=== PATIENT | female | born 1970 | race Caucasian/White ===

== ENCOUNTER 2016-04-10 23:16 | Emergency (ER) | payer BC ==
[2016-04-10] MEDS ORDERED: NS 0.9% 1000 ML* 2,000 ML IV ONE (23:40)
[2016-04-10] MEDS ORDERED: Morphine INJ* 4 MG/ML 1 ML CARPUJECT IV ONE (23:40)
[2016-04-10] MEDS ORDERED: Ondansetron INJ* 2 MG/ML VIAL IV ONE (23:40)
[2016-04-10] MEDS ORDERED: Ondansetron INJ* 2 MG/ML VIAL ONE (23:40)
[2016-04-10] MEDS ORDERED: Morphine INJ* 4 MG/ML 1 ML CARPUJECT ONE (23:40)
[2016-04-11 00:28] LABS: Hematocrit 46 % (35-47); Hemoglobin 15.5 g/dl (12.0-16.0); Mean Corpuscular HGB Conc 34 g/dl (31-36); Mean Corpuscular Hemoglobin 29 pg (27-31); Mean Corpuscular Volume 87 fL (80-97); Mean Platelet Volume 10 um3 (7.4-10.4); Red Blood Count 5.28 10^6/ul (4.0-5.4); Red Cell Distribution Width 13 % (10.5-15); White Blood Count 13.2 10^3/ul (3.5-10.8)
[2016-04-11] MEDS ORDERED: Morphine INJ* 2 MG/ML 1 ML CARPUJECT IV ONE (00:31)
[2016-04-11] MEDS: Morphine INJ* 2 MG/ML 1 ML CARPUJECT IM ONE ×2 (00:33→03:00)
[2016-04-11 00:38] LABS: ALT 19 U/L (7-52); AST 14 U/L (13-39); Albumin 4.5 g/dL (3.2-5.2); Alkaline Phosphatase 73 U/L (34-104); Anion Gap 10 mmol/L (2-11); BUN/Creatinine Ratio 18.2 (8-20); Blood Urea Nitrogen 18 mg/dL (6-24); CO2 Carbon Dioxide 20 mmol/L (22-32); Calcium 9.1 mg/dL (8.6-10.3); Chloride 106 mmol/L (101-111); EGFR African American 78.7 (>60); EGFR Non-African American 61.2 (>60); Glucose 159 mg/dL (70-100); Lipase 15 U/L (11.0-82.0); Potassium 3.7 mmol/L (3.5-5.0); Sodium 136 mmol/L (133-145); Total Protein 7.5 g/dL (6.4-8.9)
[2016-04-11 00:57] LABS: Magnesium 1.8 mg/dL (1.9-2.7)
[2016-04-11] MEDS ORDERED: Ondansetron INJ* 2 MG/ML VIAL IV ONE (01:11)
[2016-04-11] MEDS ORDERED: Iohexol 300* (CONTRAST) 10 ML SDV IV ONE (01:27)
[2016-04-11] MEDS ORDERED: Magnesium Sulfate 1 GM IV* 1 GM/100 ML BAG IV ONE (03:37)
--- NOTE | 2016-04-11 04:26 | ED ---
Casper Hopkins Adam, scribed for David Ragland on 04/10/16 at 2342 . GI/ HPI - HPI Summary HPI Summary: Pt is a 45 year old female presenting with abdominal pain and N/V/D. She began having symptoms at 10:00 this morning. She states that she has vomited 6x and had yellow diarrhea 10x. Her abdominal pain is located diffusely around the umbilicus. Pt states that her children and her have all had the same symptoms recently. She denies any fever. No surgical Hx. PMHx of pericarditis. Positive tobacco use. - History of Current Complaint Chief Complaint: EDAbdPain Time Seen by Provider: 04/10/16 23:32 Stated Complaint: CHEST PAIN, N,V & D Hx Obtained From: Patient Onset/Duration: Started Hours Ago, Atraumatic, Still Present Timing: Constant Severity: Moderate Current Severity: Moderate Pain Intensity: 6 Location of Pain: Diffuse, Umbilical Associated Signs and Symptoms: Positive: Nausea, Vomiting, Diarrhea Aggravating Factor(s): Nothing Alleviating Factor(s): Nothing - Allergy/Home Medications Allergies/Adverse Reactions: Allergies Allergy/AdvReac Type Severity Reaction Status Date / Time BEE STINGS Allergy SEVERE Uncoded 01/27/16 08:27 LOCALIZED SWELLING PMH/Surg Hx/FS Hx/Imm Hx Endocrine/Hematology History: Reports: Hx Diabetes - REPORTS GESTATIONAL DIABETES-RESOLVED SINCE DELIVERY Cardiovascular History: Denies: Hx Congestive Heart Failure, Hx Hypertension, Hx Pacemaker/ICD History: Denies: Hx Renal Disease Sensory History: Denies: Hx Contacts or Glasses, Hx Hearing Aid Opthamlomology History: Denies: Hx Contacts or Glasses Psychiatric History: Denies: Hx Panic Disorder - Cancer History Hx Chemotherapy: No Hx Radiation Therapy: No Infectious Disease History: No Infectious Disease History: Reports: Hx Hepatitis - HEP C EXPOSURE - CARRIES ANTIGEN Denies: Traveled Outside the [place] in Last 30 Days - Family History Known Family History: Positive: Other - Negative FMHx of breast cancer - Social History Occupation: Employed Full-time Lives: With Family Alcohol Use: Weekly Alcohol Amount: 2 GLASSES OF WINE PER WEEK Hx Substance Use: No Substance Use Type: Reports: None Hx Tobacco Use: Yes Smoking Status (MU): Light Every Day Tobacco Smoker Type: Cigarettes Amount Used/How Often: 7 CIGARETTES PER DAY FOR ABOUT 16 YEARS Length of Time of Smoking/Using Tobacco: 16 YEARS Have You Smoked in the Last Year: Yes Review of Systems Constitutional: Negative Negative: Fever Positive: Abdominal Pain, Vomiting, Diarrhea, Nausea All Other Systems Reviewed And Are Negative: Yes Physical Exam Triage Information Reviewed: Yes Vital Signs On Initial Exam: Initial Vitals Temp Pulse Resp BP Pulse Ox 98.8 F 110 18 99/60 97 04/10/16 23:21 04/10/16 23:21 04/10/16 23:21 04/10/16 23:21 04/10/16 23:21 Vital Signs Reviewed: Yes Appearance: Positive: Well-Appearing, No Pain Distress Skin: Positive: Warm, Skin Color Reflects Adequate Perfusion, Dry Head/Face: Positive: Normal Head/Face Inspection Eyes: Positive: EOMI, GUS ENT: Positive: Other - Mucosa dry Neck: Positive: Supple, Nontender Respiratory/Lung Sounds: Positive: Clear to Auscultation, Breath Sounds Present Cardiovascular: Positive: Pulses are Symmetrical in both Upper and Lower Extremities, Tachycardia Abdomen Description: Positive: Other: - Diffuse tenderness Bowel Sounds: Positive: Present Musculoskeletal: Positive: Normal, Strength/ROM Intact Neurological: Positive: Normal, Sensory/Motor Intact, Alert, Oriented to Person Place, Time Diagnostics - Vital Signs Vital Signs Temp Pulse Resp BP Pulse Ox 04/10/16 23:21 98.8 F 110 18 99/60 97 - Laboratory Result Diagrams: 04/10/16 23:30 04/10/16 23:30 Lab Statement: Any lab studies that have been ordered have been reviewed, and results considered in the medical decision making process. - CT A/P CT Interpretation Completed By: Radiologist - NO BOWEL OBSTRUCTION, COLITIS, DIVERTICULITIS, FREE FLUID OR FREE AIR. NORMAL APPENDIX. UNREMARKABLE PANCREAS AND GALLBLADDER. MINIMAL SPLENOMEGALY. SMALL UMBILICAL HERNIA CONTAINING FAT. SMALL RIGHT RENAL CYSTS. 2.1 CM RIGHT OVARIAN FOLLICLE. - EKG 23:26 Cardiac Rate: Tachycardia - 107 BPM EKG Rhythm: Sinus Tachycardia EKG Interpretation: No acute changes - Additional Comments Diagnostic Additional Comments: Troponin I - 0.00 GIGU Course/Dx - Diagnoses Provider Diagnoses: Gastroenteritis Discharge - Discharge Plan Condition: Stable Disposition: HOME Patient Education Materials: Gastroenteritis (ED) Referrals: Jessica Agarwal MD [Primary Care Provider] - Additional Instructions: Follow up with Dr. Agarwal. The documentation as recorded by the Casper archibaldWilber accurately reflects the service I personally performed and the decisions made by me, David Ragland.
[2016-04-11 04:55] VITALS: BP 76/43
--- NOTE | 2016-04-11 08:13 | RAD ---
INDICATION: Abdominal pain and vomiting evaluate for diverticulitis. COMPARISON: Comparison is made with a prior CT of the abdomen and pelvis from June 09, 2013. TECHNIQUE: A CT scan of the abdomen and pelvis was performed with intravenous and without oral contrast following intravenous injection of 124 ml of Omnipaque 300 nonionic contrast. Contiguous axial sections were obtained from the lung bases through the symphysis pubis. Images were reconstructed in the coronal and sagittal planes. FINDINGS: The lung bases are clear. No pleural effusion is present. The liver is normal in size and decreased in attenuation consistent with fatty infiltration. The spleen is mildly enlarged and unchanged from the prior exam. No calcified gallstones are seen. The pancreas appears to be within normal limits. The kidneys and adrenal glands are normal in size. No hydronephrosis is seen. There are cysts in the superior and inferior pole of the right kidney measuring 1.7 and 0.7 cm in size respectively. The aorta is normal in caliber and demonstrates homogeneous contrast opacification. No significant enlarged retroperitoneal lymph nodes are seen. The stomach is mildly distended with fluid. The small bowel colon appear nondistended. The appendix is within normal limits. There is mild descending and sigmoid diverticulosis without evidence for diverticulitis. There is a small periumbilical hernia containing fat. The uterus is retroverted and normal in size. There is a 1.8 cm involuting right ovarian cyst. No free intraperitoneal air or fluid is seen. No significant focal osseous abnormality is seen. IMPRESSION: 1. NO EVIDENCE FOR ACUTE FINDING. 2. 1.8 CM INVOLUTING RIGHT OVARIAN CYST. 3. HEPATIC STEATOSIS. 4. MILD SPLENOMEGALY, UNCHANGED.
== END 2016-04-11 04:57 | disposition home or self-care (01) ==
LOC: ED 23:16
DX: K52.9 Noninfective gastroenteritis and colitis, unspecified (principal); R11.2 Nausea with vomiting, unspecified; R19.7 Diarrhea, unspecified; R10.9 Unspecified abdominal pain; F17.210 Nicotine dependence, cigarettes, uncomplicated
CPT/HCPCS: 36415; 74177; 80053; 83690; 83735; 84484; 84702; 85025; 93005; 96374; 96375; 96376; 99283; J2270; J2405; J3475; Q9967

== ENCOUNTER 2017-03-29 13:52 | Emergency (ER) | payer BC ==
[2017-03-29] MEDS ORDERED: Morphine INJ* 4 MG/ML 1 ML CARPUJECT IV ONE (14:57)
[2017-03-29] MEDS ORDERED: Ondansetron INJ* 2 MG/ML VIAL IV ONE (14:57)
[2017-03-29] MEDS ORDERED: NS 0.9% 1000 ML* 2,000 ML IV ONE (14:57)
[2017-03-29 15:14] LABS: Hematocrit 35 % (35-47); Hemoglobin 12.2 g/dl (12.0-16.0); Mean Corpuscular HGB Conc 35 g/dl (31-36); Mean Corpuscular Hemoglobin 30 pg (27-31); Mean Corpuscular Volume 88 fL (80-97); Mean Platelet Volume 9 um3 (7.4-10.4); Platelet Count 105 10^3/ul (150-450); Red Blood Count 4.04 10^6/ul (4.0-5.4); Red Cell Distribution Width 13 % (10.5-15); White Blood Count 6.3 10^3/ul (3.5-10.8)
[2017-03-29 15:28] LABS: INR 0.95 (0.77-1.02)
[2017-03-29 15:31] LABS: EGFR Non-African American 86.6 (>60)
--- NOTE | 2017-03-29 15:32 | RAD ---
Indication: RIGHT occipital headache. Comparison: No relevant prior exams available on the [facility] for comparison. Technique: Noncontrast CT vertex of skull through foramen magnum. Report: The sulci, ventricles, and basal cisterns are normal for age. [place] matter white matter differentiation is preserved without evidence for edema. No intra or extra axial hemorrhage, mass, or fluid collection detected. Unremarkable visualized orbital contents. Unremarkable calvarium and skull base. Unremarkable scalp. The visualized paranasal sinuses and mastoid air spaces are clear. IMPRESSION: Negative unenhanced CT of the brain.
[2017-03-29] MEDS ORDERED: diPHENhydraMINE IV* 50 MG/ML 1 ml VIAL (BENADRYL) IV ONE ×2 (15:36→15:38)
--- NOTE | 2017-03-29 15:36 | RAD ---
Indication: Occipital headaches. CT of the cervical spine was obtained in the axial plane. Sagittal and coronal reconstructed images were obtained. The skull base demonstrates no fracture. Mastoid air cells are well aerated. The C1 ring is intact. Atlantoaxial joint is unremarkable. The remainder of the vertebral bodies appear normal in height and alignment. There is no evidence of fracture. Disc spaces all well-preserved. Spinal canal appears to be intact. IMPRESSION: No fracture of the cervical spine is noted.
[2017-03-29 15:55] LABS: Monocytes % 8 % (0-13)
[2017-03-29] MEDS ORDERED: Iohexol 350* (CONTRAST) 500 ML MDV IV ONE (17:44)
--- NOTE | 2017-03-29 19:17 | RAD ---
INDICATION: Occipital headaches COMPARISON: CT brain same date TECHNIQUE: Axial source images were acquired with coronal and sagittal reconstructions. CT angiographic technique was utilized with injection of 80 mL Omnipaque 350. FINDINGS: Aortic arch: There are no CT angiogram abnormalities of the arch or the great vessels arising from the arch. Right carotid: The common carotid artery, carotid bifurcation, extracranial portions of the internal carotid artery, carotid artery at the skull base, carotid siphon, and carotid termination appear normal. Left carotid:The common carotid artery, carotid bifurcation, extracranial portions of the internal carotid artery, carotid artery at the skull base, carotid siphon, and carotid termination appear normal. Right middle and anterior cerebral arteries: There are no CT angiographic abnormalities of the middle or anterior cerebral arteries. Left middle and anterior cerebral arteries: There are no CT angiographic abnormalities of the middle or anterior cerebral arteries Right vertebral: The CT angiographic appearance of the vertebral artery is normal. Left vertebral: The CT angiographic appearance of the vertebral artery is normal. Basilar artery: The basilar artery and basilar tip appear normal. Posterior cerebral arteries: The distal distribution of the right and left posterior cerebral arteries is normal. [place]: The CT angiographic appearance of the [place] is normal. Source images show no evidence of new mass or adenopathy within the neck. There is a small (4 to 5 mm) cyst in left thyroid lobe, unchanged. There are no focal brain parenchymal abnormalities or abnormal areas of enhancement. IMPRESSION: NO SPECIFIC CT ANGIOGRAPHIC ABNORMALITIES. CPT II Codes: 3100F RS
[2017-03-29] MEDS ORDERED: Ketorolac INJ* 30 MG/ML 1 ML VIAL IV ONE (19:43)
--- NOTE | 2017-03-29 19:53 | ED ---
Sriram Hopkins Stephanie, scribed for Rodrigue Rosas MD on 03/29/17 at 1508 . Throat Pain/Nasal Congestion - HPI Summary HPI Summary: The pt is a 46 y/o F presenting to the ED with c/o vision changes that began at 01:30 today. The pt reports an ongoing headache that began 2 weeks ago and has worsened from a 4 to 7 in severity since coming into the ED today. Symptoms include neck pain, headache (in the R parietal region and bilateral occipital region of the head), and electrical shocks up and down the body. The pt denies weakness, numbness in the extremities, rhinorrhea, and sore throat. She denies hx of headaches or recent trauma. The pt describes her vision changes as triangle shapes appearing over the left side of both of her eyes. The pt said her vision changed to appear as if she was under water. There was a black dot present in the middle of her vision and she was unable to see. The incident of vision changes lasted 40 minutes. The pt reports having a long period that was unexpected because she gets hot flashes and believes she was undergoing menopause. - History of Current Complaint Chief Complaint: EDHeadache Time Seen by Provider: 03/29/17 14:34 Hx Obtained From: Patient Onset/Duration: Sudden Onset, Lasting Minutes - 40, Resolved - Allergies/Home Medications Allergies/Adverse Reactions: Allergies Allergy/AdvReac Type Severity Reaction Status Date / Time Morphine Allergy Hives Verified 03/29/17 17:44 BEE STINGS Allergy SEVERE Uncoded 03/29/17 14:16 LOCALIZED SWELLING PMH/Surg Hx/FS Hx/Imm Hx Endocrine/Hematology History: Reports: Hx Diabetes - REPORTS GESTATIONAL DIABETES-RESOLVED SINCE DELIVERY Cardiovascular History: Denies: Hx Congestive Heart Failure, Hx Hypertension, Hx Pacemaker/ICD History: Denies: Hx Renal Disease Sensory History: Denies: Hx Contacts or Glasses, Hx Hearing Aid Opthamlomology History: Denies: Hx Contacts or Glasses Psychiatric History: Denies: Hx Panic Disorder - Cancer History Hx Chemotherapy: No Hx Radiation Therapy: No - Surgical History Surgery Procedure, Year, and Place: None Infectious Disease History: No Infectious Disease History: Reports: Hx Hepatitis - HEP C EXPOSURE - CARRIES ANTIGEN Denies: Traveled Outside the [place] in Last 30 Days - Family History Known Family History: Positive: Other - Negative FMHx of breast cancer - Social History Occupation: Employed Full-time Lives: With Family Alcohol Use: Weekly Alcohol Amount: 2 GLASSES OF WINE PER WEEK Hx Substance Use: No Substance Use Type: Reports: None Hx Tobacco Use: Yes Smoking Status (MU): Light Every Day Tobacco Smoker Type: Cigarettes Amount Used/How Often: 7 CIGARETTES PER DAY FOR ABOUT 16 YEARS Length of Time of Smoking/Using Tobacco: 16 YEARS Have You Smoked in the Last Year: Yes Review of Systems Negative: Fever Negative: Sore Throat, Nasal Discharge Positive: Other - neck pain, Neurological: Other - "elecrical shock" pain up and down body though lower extremities Positive: Headache. Negative: Weakness, Numbness All Other Systems Reviewed And Are Negative: Yes Physical Exam - Summary Physical Exam Summary: General: well-appearing, moderate pain distress Skin: warm, color reflects adequate perfusion, dry Head: normal Eyes: EOMI, GUS ENT: normal Neck: supple, nontender Respiratory: CTA, breath sounds present Cardiovascular: RRR Abdomen: soft, nontender Bowel: present Musculoskeletal: normal, strength/ROM intact Neurological: normal, sensory/motor intact, A&O x3 Psychological: affect/mood appropriate Triage Information Reviewed: Yes Vital Signs On Initial Exam: Initial Vitals Temp Pulse Resp BP Pulse Ox 97.7 F 88 20 116/80 97 03/29/17 14:16 03/29/17 14:16 03/29/17 14:16 03/29/17 14:16 03/29/17 14:16 Vital Signs Reviewed: Yes - Lazaro Coma Scale Coma Scale Total: 15 Diagnostics - Vital Signs Vital Signs Temp Pulse Resp BP Pulse Ox 03/29/17 14:32 91 97 03/29/17 14:16 97.7 F 88 20 116/80 97 - Laboratory Lab Results: Lab Results 03/29/17 03/29/17 03/29/17 Range/Units 15:06 15:06 15:06 WBC 6.3 (3.5-10.8) 10^3/ul RBC 4.04 (4.0-5.4) 10^6/ul Hgb 12.2 (12.0-16.0) g/dl Hct 35 (35-47) % MCV 88 (80-97) fL MCH 30 (27-31) pg MCHC 35 (31-36) g/dl RDW 13 (10.5-15) % Plt Count 105 L (150-450) 10^3/ul MPV 9 (7.4-10.4) um3 Neut % (Auto) Not Reportable Lymph % (Auto) Not Reportable [place] % (Auto) Not Reportable Eos % (Auto) Not Reportable Baso % (Auto) Not Reportable Absolute Neuts (auto) Not Reportable Absolute Lymphs (auto) Not Reportable Absolute Monos (auto) Not Reportable Absolute Eos (auto) Not Reportable Absolute Basos (auto) Not Reportable Absolute Nucleated RBC Not Reportable Neutrophils % 27 L (38-83) % Lymphocytes % 51 H (25-47) % Reactive Lymphs % 14 H (0-6) % Monocytes % 8 (0-13) % Eosinophils % 0 (0-6) % Basophils % 0 (0-2) % Nucleated RBC % Not Reportable Abs Neuts (Manual) 1.7 (1.5-7.7) 10^3/ul Abs Lymphs (Manual) 3.2 (1.0-4.8) 10^3/ul Abs Monocytes (Manual) 0.5 (0-0.8) 10^3/ul Absolute Eos (Manual) 0 (0-0.6) 10^3/ul Abs Basophils (Manual) 0 (0-0.2) 10^3/ul Normal RBC Morphology Normal (Normal) ESR (0-14) mm/Hr INR (Anticoag Therapy) 0.95 (0.77-1.02) APTT 29.5 (26.0-36.3) seconds Sodium 137 (133-145) mmol/L Potassium 3.4 L (3.5-5.0) mmol/L Chloride 105 (101-111) mmol/L Carbon Dioxide 25 (22-32) mmol/L Anion Gap 7 (2-11) mmol/L BUN 11 (6-24) mg/dL Creatinine 0.73 (0.51-0.95) mg/dL Est GFR ( Amer) 111.4 (>60) Est GFR (Non-Af Amer) 86.6 (>60) BUN/Creatinine Ratio 15.1 (8-20) Glucose 139 H (70-100) mg/dL Lactic Acid (0.5-2.0) mmol/L Calcium 8.7 (8.6-10.3) mg/dL Total Bilirubin 0.70 (0.2-1.0) mg/dL AST 55 H (13-39) U/L ALT 140 H (7-52) U/L Alkaline Phosphatase 89 (34-104) U/L C-Reactive Protein 4.82 (< 5.00) mg/L Total Protein 6.4 (6.4-8.9) g/dL Albumin 3.8 (3.2-5.2) g/dL Globulin 2.6 (2-4) g/dL Albumin/Globulin Ratio 1.5 (1-3) Beta HCG, Quant < 0.60 mIU/mL Monoscreen (Negative) 03/29/17 03/29/17 Range/Units 15:06 17:55 WBC (3.5-10.8) 10^3/ul RBC (4.0-5.4) 10^6/ul Hgb (12.0-16.0) g/dl Hct (35-47) % MCV (80-97) fL MCH (27-31) pg MCHC (31-36) g/dl RDW (10.5-15) % Plt Count (150-450) 10^3/ul MPV (7.4-10.4) um3 Neut % (Auto) Lymph % (Auto) [place] % (Auto) Eos % (Auto) Baso % (Auto) Absolute Neuts (auto) Absolute Lymphs (auto) Absolute Monos (auto) Absolute Eos (auto) Absolute Basos (auto) Absolute Nucleated RBC Neutrophils % (38-83) % Lymphocytes % (25-47) % Reactive Lymphs % (0-6) % Monocytes % (0-13) % Eosinophils % (0-6) % Basophils % (0-2) % Nucleated RBC % Abs Neuts (Manual) (1.5-7.7) 10^3/ul Abs Lymphs (Manual) (1.0-4.8) 10^3/ul Abs Monocytes (Manual) (0-0.8) 10^3/ul Absolute Eos (Manual) (0-0.6) 10^3/ul Abs Basophils (Manual) (0-0.2) 10^3/ul Normal RBC Morphology (Normal) ESR 10 (0-14) mm/Hr INR (Anticoag Therapy) (0.77-1.02) APTT (26.0-36.3) seconds Sodium (133-145) mmol/L Potassium (3.5-5.0) mmol/L Chloride (101-111) mmol/L Carbon Dioxide (22-32) mmol/L Anion Gap (2-11) mmol/L BUN (6-24) mg/dL Creatinine (0.51-0.95) mg/dL Est GFR ( Amer) (>60) Est GFR (Non-Af Amer) (>60) BUN/Creatinine Ratio (8-20) Glucose (70-100) mg/dL Lactic Acid 0.6 (0.5-2.0) mmol/L Calcium (8.6-10.3) mg/dL Total Bilirubin (0.2-1.0) mg/dL AST (13-39) U/L ALT (7-52) U/L Alkaline Phosphatase (34-104) U/L C-Reactive Protein (< 5.00) mg/L Total Protein (6.4-8.9) g/dL Albumin (3.2-5.2) g/dL Globulin (2-4) g/dL Albumin/Globulin Ratio (1-3) Beta HCG, Quant mIU/mL Monoscreen Negative (Negative) Result Diagrams: 03/29/17 15:06 03/29/17 15:06 Lab Statement: Any lab studies that have been ordered have been reviewed, and results considered in the medical decision making process. - CT Cervical Spine CT Interpretation: No Acute Changes CT Interpretation Completed By: Radiologist - No fracture of the cervical spine is noted. Brain CT Interpretation: No Acute Changes CT Interpretation Completed By: Radiologist - Negative unenhanced CT of the brain. CTA head CT Interpretation: No Acute Changes CT Interpretation Completed By: Radiologist - NO SPECIFIC CT ANGIOGRAPHIC ABNORMALITIES. CPT II Codes: 3100F PQRS EENT Course/Dx - Course Course Of Treatment: Medications reviewed. CONNELL 09/25 DURING INITIAL INTERVIEW. DECREASED TO 04/[address] HASSAN, NEUROLOGY, SAW PATIENT IN ED. POSSIBLE VIRAL CAUSE OF 2 WEEK HEADACHE; NO SPINAL TAP NO FEVER OR NUCAL RIGIDITY. TODAY'S EXACERBATION CONSIDERED TO BE MIGRAINE WITH AURA. F/U PMD; RETURN IF WORSE. - Diagnoses Provider Diagnoses: Headache, Migraine with aura - Provider Notifications Discussed Care Of Patient With: Navjot Hassan - Dr. Hassan suggested to order a CTA head/neck. Dr. Hassan will evaluate pt. Time Discussed With Above Provider: 16:54 Discharge - Discharge Plan Condition: Stable Disposition: HOME Patient Education Materials: Migraine Headache (ED), General Headache (ED) Referrals: Jessica Agarwal MD [Primary Care Provider] - Additional Instructions: FOLLOW UP WITH YOUR DOCTOR. RETURN TO THE EMERGENCY DEPARTMENT FOR ANY WORSENING OF YOUR CONDITION; WEAKNESS , NUMBNESS, YOU FEEL ILL, FEVER, DIFFICULTY WITH SPEECH OR VISION OR QUESTIONS OR CONCERNS. The documentation as recorded by the Sriram archibald Stephanie accurately reflects the service I personally performed and the decisions made by me, Rodrigue Rosas MD.
[2017-03-29 20:01] VITALS: BP 94/53
--- NOTE | 2017-03-29 21:26 | CONS ---
NEUROLOGY CONSULTATION: DATE OF CONSULT: 03/29/17 LOCATION: She is in the emergency room. REFERRING PHYSICIAN: Dr. Rosas. CHIEF COMPLAINT: Headache, visual changes. 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 They fluctuate in intensity and are most commonly occipital or apical, but sometimes more in the left side than the right. About 5 days ago, she was having pain behind her eyes and it would hurt to move her eyes in any direction. She normally does not get headaches. She would take some ibuprofen, but it did not really seem to help and she was not really taking anything else for them. She did not feel sick in any other way, specifically, no sore throats, fevers, rashes, joint pains, or gastrointestinal problems. 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 Today, she was at [facility] and she started to have a change in her vision. She noted in the left peripheral vision, she started to get an arc-shaped scotoma, which moved across towards her center vision. There was red and green geometric components to it and was shimmering. It moved to the center and then resolved to where she had difficulty seeing in the center of her vision, but can see in the periphery. That resolved as well and the whole thing lasted about 40 minutes. Ten minutes after that, she started to get a pounding headache. She has some mild photophobia, but nothing pronounced. No nausea. She has not had problems with migraine headaches in the past or other headache disorders and has never had visual events like this before. PAST MEDICAL HISTORY: Notable for generally good health. MEDICATIONS: She does not take any medications on a regular basis. ALLERGIES: She is allergy to BEE STINGS. She just had the reaction of hives to some MORPHINE that she got in the emergency room. SOCIAL HISTORY: She drinks alcohol infrequently. She is and lives with her . She works at nights in the intensive care unit. PHYSICAL EXAM: She is well nourished and well hydrated. Temperature 97.7, heart rate in the 80s, blood pressure 108/71. Lungs are clear bilaterally. Heart is in a regular rhythm without murmurs heard. There are no anterior or posterior cervical bruits. Oral mucosa is moist and I do not see any erythema. Neck is supple, but there is some discomfort when she flexes her neck at the nuchal region. Neurologically, pupils react equally from 4 to 2.5 mm. Funduscopic exam reveals sharp discs bilaterally. Eye movements are normal and visual win are full to confrontation. There is no ptosis. Facial musculature is symmetric. Facial sensation to light touch is symmetric. Speech is clear without dysarthria. Motor exam reveals no drift in the limbs. She seems to have perfectly normal strength throughout. There is no tremor or asterixis in the outstretched hand. She is alert and oriented and is an excellent historian. Memory is intact and language is fluent. She has adequate attention, concentration, and fund of knowledge. DIAGNOSTIC STUDIES/LAB DATA: Includes a CT scan of the cervical spine interpreted as unremarkable. CT scan of the brain was also obtained and likewise is unremarkable. I reviewed the images and I agree. Other laboratory study is notable for a platelet count of 105,000, which when compared to prior platelet count is little bit lower than usual, but she has had platelets counts at 126,000 and 141,000 in the past. Her white blood cell count is normal, but she has 27% neutrophils, 51% lymphocytes, and 14% reactive lymphocytes. Chemistries are notable for nonfasting glucose of 139; elevated AST at 55 and ALT at 140, which she has not had with prior blood draws. Bilirubin is normal. Beta hCG is negative. IMPRESSION AND PLAN: My suspicion is that Dorota has a viral headache. She has elevated liver enzymes and reactive lymphocytosis. She does not have any other symptoms of a viral infection, but there are a lot of things going around and I suspect that is the case. I do not think that she needs a lumbar puncture. I would recommend checking a Monospot and a sedimentation rate. She is to have a CT angiogram of the neck to rule out a dissection. She is feeling better after medication, but still has a headache and I recommend consider some Toradol once the angiogram is done and if it is normal. If the headaches worsen or specifically she develop signs or symptoms of infectious illness, then the lumbar puncture might be indicated, but at this point, I do not think it is necessary as she has been sick for 2 weeks and does not have a fever or elevated white count but just some stigmata that suggest a viral process. [id number]/[facility] #: [id number] ROLDAN
== END 2017-03-29 20:02 | disposition home or self-care (01) ==
LOC: ED 13:52
DX: G43.109 Migraine with aura, not intractable, without status migrainosus (principal); M54.2 Cervicalgia; F17.210 Nicotine dependence, cigarettes, uncomplicated; E11.9 Type 2 diabetes mellitus without complications; H53.9 Unspecified visual disturbance
CPT/HCPCS: 36415; 70450; 70496; 70498; 72125; 80053; 83605; 84702; 85025; 85610; 85652; 85730; 86140; 86308; 86664; 86665; 96374; 96375; 99282; J1200; J1885; J2270; J2405; Q9967

== ENCOUNTER 2017-10-14 23:56 | Emergency (ER) | payer BC ==
[2017-10-15] MEDS ORDERED: Albuterol 2.5 MG/3 ML NEB.SOL* (0.083%) INH ONE ×3 (00:18→02:00)
[2017-10-15] MEDS ORDERED: methylPREDNISolone 125 MG* 2 ML VIAL IV ONE (00:18)
[2017-10-15 00:36] LABS: ABS Basophils 0 10^3/ul (0-0.2); ABS Eosinophils 0.1 10^3/ul (0-0.6); ABS Lymphocytes 2.8 10^3/ul (1.0-4.8); ABS Monocytes 0.4 10^3/ul (0-0.8); ABS Neutrophils 3.1 10^3/ul (1.5-7.7); ABS Nucleated RBC 0 10^3/ul; Eosinophil % 1.5 % (0-6); Hematocrit 37 % (35-47); Hemoglobin 12.9 g/dl (12.0-16.0); Lymphocyte % 43.6 % (25-47); Mean Corpuscular HGB Conc 35 g/dl (31-36); Mean Corpuscular Hemoglobin 31 pg (27-31); Mean Corpuscular Volume 88 fL (80-97); Mean Platelet Volume 9.2 um3 (7.4-10.4); Nucleated Red Blood Cells % 0.1; Platelet Count 184 10^3/ul (150-450); Red Blood Count 4.21 10^6/ul (4.00-5.40); Red Cell Distribution Width 13 % (10.5-15); White Blood Count 6.5 10^3/ul (3.5-10.8)
[2017-10-15 01:02] LABS: INR 0.92 (0.77-1.02)
[2017-10-15 01:06] LABS: EGFR Non-African American 77.9 (>60)
[2017-10-15] MEDS ORDERED: Potassium Chlor TAB* 20 MEQ TAB.ER PO ONE (01:54)
[2017-10-15] MEDS ORDERED: Azithromycin TAB* 250 MG PO ONE (01:55)
[2017-10-15] MEDS ORDERED: Albuterol HFA INHALER* 8 gm MDI INH ONE (02:09)
--- NOTE | 2017-10-15 02:13 | ED ---
Shortness of Breath - HPI Summary HPI Summary: This is cristela Mckeon documenting for Dr. David Ragland MD. Pt is a 46 y/o F who presents to ED c/o SOB for one week. She describes the pain as burning when she breathes and heaviness. Walking exacerbates pain. Notes nonproductive cough. Denies edema in legs or fever. FHx of myocardial infarction. Denies drug use or PMHx of ID or emphysema. - History of Current Complaint Chief Complaint: EDShortnessOfBreath Time Seen by Provider: 10/15/17 00:10 Hx Obtained From: Patient Onset/Duration: Lasting Days, Still Present Aggrevating Factors: Movement Associated Signs & Symptoms: Cough (Nonproductive), Fever - negative, Edema - negative - Allergy/Home Medications Allergies/Adverse Reactions: Allergies Allergy/AdvReac Type Severity Reaction Status Date / Time BEE STINGS Allergy SEVERE Uncoded 10/15/17 00:00 LOCALIZED SWELLING PMH/Surg Hx/FS Hx/Imm Hx Endocrine/Hematology History: Reports: Hx Diabetes - REPORTS GESTATIONAL DIABETES-RESOLVED SINCE DELIVERY Cardiovascular History: Denies: Hx Congestive Heart Failure, Hx Hypertension, Hx Pacemaker/ICD Respiratory History: Denies: Hx Asthma, Hx Chronic Obstructive Pulmonary Disease (COPD) History: Denies: Hx Renal Disease Sensory History: Denies: Hx Contacts or Glasses, Hx Hearing Aid Opthamlomology History: Denies: Hx Contacts or Glasses Psychiatric History: Denies: Hx Panic Disorder - Cancer History Hx Chemotherapy: No Hx Radiation Therapy: No - Surgical History Surgery Procedure, Year, and Place: None Infectious Disease History: No Infectious Disease History: Reports: Hx Hepatitis - HEP C EXPOSURE - CARRIES ANTIGEN Denies: Traveled Outside the [place] in Last 30 Days - Family History Known Family History: Positive: Other - Negative FMHx of breast cancer - Social History Alcohol Use: Weekly Alcohol Amount: 2 GLASSES OF WINE PER WEEK Hx Substance Use: No Substance Use Type: Reports: None Hx Tobacco Use: Yes Smoking Status (MU): Light Every Day Tobacco Smoker Type: Cigarettes Amount Used/How Often: 7 CIGARETTES PER DAY FOR ABOUT 16 YEARS Length of Time of Smoking/Using Tobacco: 16 YEARS Have You Smoked in the Last Year: Yes Review of Systems Negative: Fever Positive: Other - Negative: Edema in legs Positive: Shortness Of Breath, Cough - Nonproductive All Other Systems Reviewed And Are Negative: Yes Physical Exam - Summary Physical Exam Summary: Appearance: Well appearing, mild distress Skin: warm, dry, reflects adequate perfusion Head/face: normal Eyes: EOMI, GUS ENT: normal Neck: supple, non-tender Respiratory: CTA, breath sounds present Cardiovascular: RRR, pulses symmetrical Abdomen: non-tender, soft Bowel: present Musculoskeletal: normal, strength/ROM intact Neuro: normal, sensory motor intact, A&Ox3 Triage Information Reviewed: Yes Vital Signs On Initial Exam: Initial Vitals Temp Pulse Resp BP Pulse Ox 97.7 F 71 24 114/72 100 10/14/17 23:58 10/14/17 23:58 10/14/17 23:58 10/14/17 23:58 10/14/17 23:58 Vital Signs Reviewed: Yes Diagnostics - Vital Signs Vital Signs Temp Pulse Resp BP Pulse Ox 10/15/17 02:05 70 14 100 10/15/17 01:47 73 4 109/74 94 10/15/17 01:17 76 20 111/72 92 10/15/17 01:00 76 21 100 10/15/17 00:47 80 28 119/85 100 10/15/17 00:31 71 14 100 10/15/17 00:20 72 27 100 10/15/17 00:18 69 25 119/77 100 10/14/17 23:58 97.7 F 71 24 114/72 100 - Laboratory Lab Results: Lab Results 10/15/17 10/15/17 10/15/17 Range/Units 00:21 00:21 00:22 WBC 6.5 (3.5-10.8) 10^3/ul RBC 4.21 (4.00-5.40) 10^6/ul Hgb 12.9 (12.0-16.0) g/dl Hct 37 (35-47) % MCV 88 (80-97) fL MCH 31 (27-31) pg MCHC 35 (31-36) g/dl RDW 13 (10.5-15) % Plt Count 184 (150-450) 10^3/ul MPV 9.2 (7.4-10.4) um3 Neut % (Auto) 48.2 (38-83) % Lymph % (Auto) 43.6 (25-47) % [place] % (Auto) 6.2 (0-7) % Eos % (Auto) 1.5 (0-6) % Baso % (Auto) 0.5 (0-2) % Absolute Neuts (auto) 3.1 (1.5-7.7) 10^3/ul Absolute Lymphs (auto) 2.8 (1.0-4.8) 10^3/ul Absolute Monos (auto) 0.4 (0-0.8) 10^3/ul Absolute Eos (auto) 0.1 (0-0.6) 10^3/ul Absolute Basos (auto) 0 (0-0.2) 10^3/ul Absolute Nucleated RBC 0 10^3/ul Nucleated RBC % 0.1 INR (Anticoag Therapy) 0.92 (0.77-1.02) APTT 29.4 (26.0-36.3) seconds D-Dimer, Quantitative (Less Than 230) ng/mL Sodium 137 (135-145) mmol/L Potassium 3.3 L (3.5-5.0) mmol/L Chloride 104 (101-111) mmol/L Carbon Dioxide 23 (22-32) mmol/L Anion Gap 10 (2-11) mmol/L BUN 11 (6-24) mg/dL Creatinine 0.80 (0.51-0.95) mg/dL Est GFR ( Amer) 94.3 (>60) Est GFR (Non-Af Amer) 77.9 (>60) BUN/Creatinine Ratio 13.8 (8-20) Glucose 121 H (70-100) mg/dL Lactic Acid (0.5-2.0) mmol/L Calcium 9.2 (8.6-10.3) mg/dL Total Bilirubin 0.40 (0.2-1.0) mg/dL AST 15 (13-39) U/L ALT 15 (7-52) U/L Alkaline Phosphatase 74 (34-104) U/L Troponin I 0.00 (<0.04) ng/mL B-Natriuretic Peptide ( - 100) pg/mL Total Protein 6.7 (6.4-8.9) g/dL Albumin 4.1 (3.2-5.2) g/dL Globulin 2.6 (2-4) g/dL Albumin/Globulin Ratio 1.6 (1-3) Beta HCG, Quant < 0.60 mIU/mL 10/15/17 10/15/17 10/15/17 Range/Units 00:22 00:22 00:24 WBC (3.5-10.8) 10^3/ul RBC (4.00-5.40) 10^6/ul Hgb (12.0-16.0) g/dl Hct (35-47) % MCV (80-97) fL MCH (27-31) pg MCHC (31-36) g/dl RDW (10.5-15) % Plt Count (150-450) 10^3/ul MPV (7.4-10.4) um3 Neut % (Auto) (38-83) % Lymph % (Auto) (25-47) % [place] % (Auto) (0-7) % Eos % (Auto) (0-6) % Baso % (Auto) (0-2) % Absolute Neuts (auto) (1.5-7.7) 10^3/ul Absolute Lymphs (auto) (1.0-4.8) 10^3/ul Absolute Monos (auto) (0-0.8) 10^3/ul Absolute Eos (auto) (0-0.6) 10^3/ul Absolute Basos (auto) (0-0.2) 10^3/ul Absolute Nucleated RBC 10^3/ul Nucleated RBC % INR (Anticoag Therapy) (0.77-1.02) APTT (26.0-36.3) seconds D-Dimer, Quantitative < 200 (Less Than 230) ng/mL Sodium (135-145) mmol/L Potassium (3.5-5.0) mmol/L Chloride (101-111) mmol/L Carbon Dioxide (22-32) mmol/L Anion Gap (2-11) mmol/L BUN (6-24) mg/dL Creatinine (0.51-0.95) mg/dL Est GFR ( Amer) (>60) Est GFR (Non-Af Amer) (>60) BUN/Creatinine Ratio (8-20) Glucose (70-100) mg/dL Lactic Acid 2.1 H* (0.5-2.0) mmol/L Calcium (8.6-10.3) mg/dL Total Bilirubin (0.2-1.0) mg/dL AST (13-39) U/L ALT (7-52) U/L Alkaline Phosphatase (34-104) U/L Troponin I (<0.04) ng/mL B-Natriuretic Peptide 7 ( - 100) pg/mL Total Protein (6.4-8.9) g/dL Albumin (3.2-5.2) g/dL Globulin (2-4) g/dL Albumin/Globulin Ratio (1-3) Beta HCG, Quant mIU/mL Result Diagrams: 10/15/17 00:22 10/15/17 00:21 Lab Statement: Any lab studies that have been ordered have been reviewed, and results considered in the medical decision making process. - Radiology CXR Radiology Interpretation Completed By: ED Physician - Negative - EKG 1:59 Cardiac Rate: NL - 69 bpm EKG Rhythm: Sinus Rhythm Course/Dx - Course Course Of Treatment: Pt is a 46 y/o F who presents to ED c/o SOB for one week. She describes the pain as burning when she breathes and heaviness. Notes nonproductive cough. Denies edema in legs or fever. FHx of myocardial infarction. Denies drug use or PMHx of ID or emphysema. Physical exam reveals mild distress. In ED course she was given Albuterol, Zithromax, Solu-MEDROL, and Klor Con. CXR was negative. EKG at 1:59 showed sinus rhythm with 69 bpm. Pt was diagnosed with bronchitis and bronchospasm then discharged home. - Diagnoses Differential Diagnosis/HQI/PQRI: Positive: Asthma, Bronchitis, CHF, Pneumonia, Pulmonary Embolism, Pulmonary Edema Provider Diagnoses: Bronchitis, Bronchospasm Discharge - Sign-Out/Discharge Documenting (check all that apply): Patient Departure - Discharge - Discharge Plan Condition: Stable Disposition: HOME Prescriptions: Albuterol HFA INHALER* [Ventolin HFA Inhaler*] 2 puff INH Q6H PRN #1 mdi MDD 3 PRN Reason: Sob/Wheezing Azithromycin TAB* [Zithromax TAB (Z-GAVIOTA) 250 mg #6 tabs] 250 mg PO DAILY #4 tab predniSONE [Prednisone 20 MG TAB] 50 mg PO ONCE 4 Days tablet Patient Education Materials: Acute Bronchitis (ED), Bronchospasm (ED) Forms: *Work Release Referrals: Jessica Agarwal MD [Primary Care Provider] - 3 Days Additional Instructions: RETURN TO ED FOR ANY NEW OR WORSENING SYMPTOMS. - Billing Disposition and Condition Condition: STABLE Disposition: Home
[2017-10-15 02:31] LABS: Urine Appearance Clear; Urine Blood 2+ (Negative); Urine Color Straw; Urine Ketones Negative (Negative); Urine Protein Negative (Negative); Urine Red Blood Cell Trace(0-2/hpf) (Absent); Urine Specific Gravity 1.002 (1.010-1.030); Urine Urobilinogen Negative (Negative); Urine White Blood Cell Trace(0-5/hpf) (Absent)
[2017-10-15 02:45] VITALS: BP 110/74
[2017-10-15] MEDS ORDERED: Albuterol HFA INHALER* 8 gm MDI INH SCH (03:00)
--- NOTE | 2017-10-15 07:47 | RAD ---
HISTORY: sob COMPARISONS: None VIEWS: 1: frontal portable view of the chest at 12:20 AM. The patient is slightly obliqued to the left. FINDINGS: LINES AND TUBES: None. CARDIOMEDIASTINAL SILHOUETTE: The cardiomediastinal silhouette is normal for portable technique. PLEURA: The costophrenic angles are sharp. No pleural abnormalities are noted. LUNG PARENCHYMA: The lungs are clear. ABDOMEN: The upper abdomen is clear. There is no subphrenic gas. BONES AND SOFT TISSUES: No bone or soft tissue abnormalities are noted. IMPRESSION: NO ACTIVE CARDIOPULMONARY DISEASE. R1
== END 2017-10-15 02:46 | disposition home or self-care (01) ==
LOC: ED 23:56
DX: J20.9 Acute bronchitis, unspecified (principal); R05 Cough; R50.9 Fever, unspecified; R06.02 Shortness of breath; F17.210 Nicotine dependence, cigarettes, uncomplicated
CPT/HCPCS: 36415; 71045; 80053; 81003; 81015; 83605; 83880; 84484; 84702; 85025; 85379; 85610; 85730; 87086; 93005; 96374; 99284; A9270-GY; J2930

== ENCOUNTER 2018-05-02 09:54 | Emergency (ER) | payer BC ==
--- NOTE | 2018-05-02 10:09 | ED ---
GI/ HPI - HPI Summary HPI Summary: A 47 y/o F presents to ED with c/o vaginal pain onset a few days ago and worsening. Pt has been having ongoing dysuria for approx one week and she thought it was a UTI. She's been drinking fluids regularly. She was experiencing vaginal discomfort, and used her fingers to inspect herself, and found a "wad" of tissue in the vagina. The tissue has been hardening and becoming more painful over the past few days. Associated sx: suprapubic pain that radiates to her back. [facility] was referred to the ED by them. Pt is very tearful at bedside. - History of Current Complaint Chief Complaint: EDUrogenitalProblems Time Seen by Provider: 05/02/18 10:08 Stated Complaint: GENERAL Hx Obtained From: Patient Hx Last Menstrual Period: 06/24/12 Onset/Duration: Started Days Ago, Still Present Timing: Constant, Lasting Days Severity: Moderate Current Severity: Severe Pain Intensity: 7 - out of 10 Location of Pain: Suprapubic Additional Location for Females: Other - vaginal pain Pain Radiates to: Back Associated Signs and Symptoms: Positive: Back Pain, Dysuria, Other: - pos: abd pain - Allergy/Home Medications Allergies/Adverse Reactions: Allergies Allergy/AdvReac Type Severity Reaction Status Date / Time BEE STINGS Allergy SEVERE Uncoded 05/02/18 10:01 LOCALIZED SWELLING Home Medications: Home Medications NK [No Home Medications Reported] 05/02/18 [History Confirmed 05/02/18] PMH/Surg Hx/FS Hx/Imm Hx Previously Healthy: No Endocrine/Hematology History: Reports: Hx Diabetes - REPORTS GESTATIONAL DIABETES-RESOLVED SINCE DELIVERY Cardiovascular History: Denies: Hx Congestive Heart Failure, Hx Hypertension, Hx Pacemaker/ICD Respiratory History: Denies: Hx Asthma, Hx Chronic Obstructive Pulmonary Disease (COPD) History: Denies: Hx Renal Disease Sensory History: Denies: Hx Contacts or Glasses, Hx Hearing Aid Opthamlomology History: Denies: Hx Contacts or Glasses Psychiatric History: Denies: Hx Panic Disorder - Cancer History Hx Chemotherapy: No Hx Radiation Therapy: No - Surgical History Surgery Procedure, Year, and Place: None Infectious Disease History: No Infectious Disease History: Reports: Hx Hepatitis - HEP C EXPOSURE - CARRIES ANTIGEN Denies: Traveled Outside the [place] in Last 30 Days - Family History Known Family History: Positive: Other - Negative FMHx of breast cancer - Social History Occupation: Employed Full-time Lives: With Family Alcohol Use: Weekly Alcohol Amount: 2 GLASSES OF WINE PER WEEK Hx Substance Use: No Substance Use Type: Reports: None Hx Tobacco Use: Yes Smoking Status (MU): Light Every Day Tobacco Smoker Type: Cigarettes Amount Used/How Often: 7 CIGARETTES PER DAY FOR ABOUT 16 YEARS Length of Time of Smoking/Using Tobacco: 16 YEARS Have You Smoked in the Last Year: Yes Review of Systems Negative: Fever, Chills Negative: Erythema Negative: Sore Throat Negative: Chest Pain Negative: Shortness Of Breath, Cough Positive: Abdominal Pain - suprapubic. Negative: Vomiting, Nausea Positive: dysuria, pain - vaginal pain due to tissue mas. Negative: hematuria Musculoskeletal: Other - pos: back pain Negative: Edema Negative: Rash Neurological: Other - neg: dizziness All Other Systems Reviewed And Are Negative: Yes Physical Exam - Summary Physical Exam Summary: Constitutional: Well-developed, Well-nourished, Alert. (-) Distressed Skin: Warm, Dry HENT: Normocephalic; Atraumatic Eyes: Conjunctiva normal Neck: Musculoskeletal ROM normal neck. (-) JVD, (-) Stridor, (-) Tracheal deviation Cardio: Rhythm regular, rate normal, Heart sounds normal; Intact distal pulses; The pedal pulses are 2+ and symmetric. Radial pulses are 2+ and symmetric. (-) Murmur Pulmonary/Chest wall: Effort normal. (-) Respiratory distress, (-) Wheezes, (-) Rales Abd: Soft, (-) Distension, (-) Guarding, (-) Rebound. Mild suprapubic tenderness. Musculoskeletal: (-) Edema Lymph: (-) Cervical adenopathy Neuro: Alert, Oriented x3 Psych: Mood and affect Normal GENITAL EXAM: pooja Meyer, chaperoned There appears to be a fullness of the urethra. Patient was examined in supine and standing position based on symptoms. Could not appreciate a bladder prolapse. There is a lesion on the cervix. There is a small amount of brown discharge, sent for culture. She denies unusual sexual contacts for at least the past 18 months. Pt has a hx: LEEP procedure. Triage Information Reviewed: Yes Vital Signs On Initial Exam: Initial Vitals Temp Pulse Resp BP Pulse Ox 96.5 F 86 17 131/84 97 05/02/18 09:56 05/02/18 09:56 05/02/18 09:56 05/02/18 09:56 05/02/18 09:56 Vital Signs Reviewed: Yes Diagnostics - Vital Signs Vital Signs Temp Pulse Resp BP Pulse Ox 05/02/18 09:56 96.5 F 86 17 131/84 97 - Laboratory Result Diagrams: 05/02/18 10:25 05/02/18 10:25 Lab Statement: Any lab studies that have been ordered have been reviewed, and results considered in the medical decision making process. - Ultrasound No standard instances Ultrasound Interpretation Completed By: Radiologist Summary of Ultrasound Findings: IMPRESSION: Markedly retroflexed uterus. No adnexal masses are noted. ED provider has reviewed this report. Re-Evaluation - Re-Evaluation 1 Re-Evaluation Time: 11:08 2 Re-Evaluation Time: 13:14 Comment: Discussed that she use an ice pack and Tylenol as needed for pain as well as to decrease sexual activity and direct pressure to area. She is scheduled to see Bhavya Osman tomorrow. Discussed plans to D/C, pt is agreeable to this. GIGU Course/Dx - Course Course Of Treatment: Pt is a 47 y/o F presenting with c/o vaginal pain onset a few days ago and worsening. She was having dysuria for approx one week, which she thought was a UTI. She was experiencing vaginal discomfort, and used her fingers to inspect herself, and found a "wad" of tissue in the vagina. The tissue has been hardening and becoming more painful over the past few days. Associated sx: suprapubic pain that radiates to her back. Pt is very tearful at bedside. Genital exam was chaperoned by pooja Meyer. Found a fullness of the urethra, but could not appreciate a bladder prolapse. There is a lesion on the cervix, and a small amount of brown discharge, sent for culture. Patient was examined in supine and standing position based on symptoms. She denies unusual sexual contacts for at least the past 18 months. Pt has a hx: LEEP procedure. There is no sign of infectious etiology. There is no obvious bladder, uterine or urethral prolapse. Urine appears normal looking. Pt given Toradol and Ativan in ED. Consulted with Dr. Weston, [facility], who recommends f/u with her and PCP in 2-3 days, particularly regarding pending cultures and whether to begin ABX at that time. Discussed with pt that she use an ice pack and Tylenol as needed for pain as well as to decrease sexual activity and direct pressure to area. She is scheduled to see Bhavya Osman tomorrow. Will discharge patient home. - Diagnoses Provider Diagnoses: Pelvic pain - Physician Notifications Discussed Care Of Patient With: Rachelle Weston - [facility] Time Discussed With Above Provider: 13:05 Instructed by Provider To: Other - F/U with [facility] and family med in 2-3 days. F /U on pending pelvic cultures to make decisions about ABX at that time. Discharge - Sign-Out/Discharge Documenting (check all that apply): Patient Departure - D/C Patient Received Moderate/Deep Sedation with Procedure: No - Discharge Plan Condition: Stable Disposition: HOME Patient Education Materials: Pelvic Pain in Women (ED) Referrals: Vero Patterson MD [Primary Care Provider] - 2 Days Rachelle Weston MD [Medical Doctor] - 2 Days Additional Instructions: Return to the emergency department for changing or worsening symptoms. Follow up with your primary care provider in 2-3 days as well as with GIOVANY Antony in 2-3 days. - Attestation Statements Document Initiated by Scribe: Yes Documenting Scribe: Yohan Valera Provider For Whom Scribe is Documenting (Include Credential): Dr. Collin Baltazar MD Scribe Attestation: I, luz Ochoaed for Dr. Collin Baltazar MD on 05/02/18 at 1320. Status of Scribe Document: Ready
[2018-05-02] MEDS ORDERED: LORazepam INJ* 2 MG/ML 1 ML VIAL IV PUSH ONE (10:16)
[2018-05-02] MEDS ORDERED: Ketorolac INJ* 30 MG/ML 1 ML VIAL IV PUSH ONE (10:16)
[2018-05-02 10:35] LABS: Hematocrit 41 % (35-47); Hemoglobin 13.9 g/dl (12.0-16.0); Mean Corpuscular HGB Conc 34 g/dl (31-36); Mean Corpuscular Hemoglobin 30 pg (27-31); Mean Corpuscular Volume 87 fL (80-97); Mean Platelet Volume 9.9 fL (7.4-10.4); Platelet Count 161 10^3/ul (150-450); Red Blood Count 4.71 10^6/ul (4.00-5.40); Red Cell Distribution Width 13 % (10.5-15); White Blood Count 6.8 10^3/ul (3.5-10.8)
[2018-05-02 10:48] LABS: Activated Partial Thrombo Time 29.4 seconds (26.0-36.3); INR 0.92 (0.77-1.02)
[2018-05-02 10:56] LABS: Albumin 4.2 g/dL (3.2-5.2); Albumin/Globulin Ratio 1.4 (1-3); Calcium 9.8 mg/dL (8.6-10.3); EGFR African American 92.5 (>60); EGFR Non-African American 76.5 (>60); Globulin 2.9 g/dL (2-4); Potassium 3.8 mmol/L (3.5-5.0); Total Bilirubin 0.4 mg/dL (0.2-1.0); Total Protein 7.1 g/dL (6.4-8.9)
[2018-05-02 11:02] LABS: HCG Pregnancy 1.06 mIU/mL
[2018-05-02 12:18] LABS: Urine Appearance Clear; Urine Bilirubin Negative (Negative); Urine Blood Negative (Negative); Urine Color Straw; Urine Glucose Negative (Negative); Urine Ketones Negative (Negative); Urine Nitrite Negative (Negative); Urine Protein Negative (Negative); Urine Specific Gravity 1.004 (1.010-1.030); Urine Urobilinogen Negative (Negative)
[2018-05-02 13:29] VITALS: BP 107/59
[2018-05-03 13:13] LABS: Neisseria gonorrhoeae (GC) RNA Negative (Negative)
[2018-05-03 13:38] LABS: Trichomonas vaginalis Result Negative (Negative)
== END 2018-05-02 13:28 | disposition home or self-care (01) ==
LOC: ED 09:54
DX: R10.2 Pelvic and perineal pain (principal); F17.210 Nicotine dependence, cigarettes, uncomplicated
CPT/HCPCS: 36415; 76830; 80053; 81003; 84702; 85027; 85610; 85730; 86850; 86900; 86901; 87480; 87491; 87510; 87591; 87661; 96374; 96375; 99282; J1885; J2060

== ENCOUNTER 2018-08-30 06:22 | Emergency (ER) | payer BC ==
[2018-08-30] MEDS ORDERED: NS 0.9% 1000 ML** 1,000 ML IV ONE (06:47)
[2018-08-30] MEDS ORDERED: Ketorolac INJ* 30 MG/ML 1 ML VIAL IV PUSH ONE (06:47)
[2018-08-30] MEDS ORDERED: Dexamethasone IV* 4 MG/ML 5 ML VIAL (20 MG) IVPB ONE (06:47)
--- NOTE | 2018-08-30 06:48 | ED ---
Throat Pain/Nasal Congestion - HPI Summary HPI Summary: Pt. is a 47 y.o female who presents to the ER for cough and sinus pressure for over one week. Pt. notes she saw PCP a few days ago and was started on Amoxicillin. Pt. states sinus congestion/pain as increased. Notes cough without SOB. No significant past medical hx. Pt. notes decreased oral intake but denies abd. pain, vomiting, diarrhea, or urinary sxs. Sxs are mild in severity. No current modifying factors. - History of Current Complaint Chief Complaint: EDGeneral Time Seen by Provider: 08/30/18 06:33 Hx Obtained From: Patient - Allergies/Home Medications Allergies/Adverse Reactions: Allergies Allergy/AdvReac Type Severity Reaction Status Date / Time BEE STINGS Allergy SEVERE Uncoded 08/30/18 06:44 LOCALIZED SWELLING PMH/Surg Hx/FS Hx/Imm Hx Previously Healthy: Yes Endocrine/Hematology History: Reports: Hx Diabetes - REPORTS GESTATIONAL DIABETES-RESOLVED SINCE DELIVERY Cardiovascular History: Denies: Hx Congestive Heart Failure, Hx Hypertension, Hx Pacemaker/ICD Respiratory History: Denies: Hx Asthma, Hx Chronic Obstructive Pulmonary Disease (COPD) History: Denies: Hx Renal Disease Sensory History: Denies: Hx Contacts or Glasses, Hx Hearing Aid Opthamlomology History: Denies: Hx Contacts or Glasses Psychiatric History: Denies: Hx Panic Disorder - Cancer History Hx Chemotherapy: No Hx Radiation Therapy: No - Surgical History Surgery Procedure, Year, and Place: None Infectious Disease History: No Infectious Disease History: Reports: Hx Hepatitis - HEP C EXPOSURE - CARRIES ANTIGEN Denies: Traveled Outside the [place] in Last 30 Days - Family History Known Family History: Positive: Other - Negative FMHx of breast cancer, Non- Contributory - Social History Occupation: Employed Full-time Lives: With Family Alcohol Use: Weekly Alcohol Amount: 2 GLASSES OF WINE PER WEEK Hx Substance Use: No Substance Use Type: Reports: None Hx Tobacco Use: Yes Smoking Status (MU): Light Every Day Tobacco Smoker Type: Cigarettes Amount Used/How Often: 7 CIGARETTES PER DAY FOR ABOUT 16 YEARS Length of Time of Smoking/Using Tobacco: 16 YEARS Have You Smoked in the Last Year: Yes Review of Systems Positive: Chills. Negative: Fever Eyes: Negative Positive: Nasal Discharge, Other - sinus pressure and pain Cardiovascular: Negative Negative: Palpitations, Chest Pain Positive: Cough. Negative: Shortness Of Breath Gastrointestinal: Negative Negative: Abdominal Pain, Vomiting, Diarrhea Genitourinary: Negative Negative: dysuria Positive: Myalgia Skin: Negative Negative: Rash Positive: Headache. Negative: Weakness, Paresthesia, Numbness, Syncope All Other Systems Reviewed And Are Negative: Yes Physical Exam Triage Information Reviewed: Yes Vital Signs On Initial Exam: Initial Vitals Temp Pulse Resp BP Pulse Ox 97.3 F 95 16 124/76 97 08/30/18 06:24 08/30/18 06:24 08/30/18 06:24 08/30/18 06:24 08/30/18 06:24 Vital Signs Reviewed: Yes Appearance: Positive: Pain Distress - Pt. lying in bed, appears uncomfortable but nontoxic. Tearful at times. Skin: Positive: Warm, Dry Head/Face: Positive: Normal Head/Face Inspection Eyes: Positive: Normal, EOMI, GUS, Conjunctiva Clear ENT: Positive: TMs normal, Other - Sinus congestion and pain over maxillary sinuses. Neck: Positive: Supple, Nontender, No Lymphadenopathy. Negative: Nuchal Rigidity Respiratory/Lung Sounds: Positive: Other - Mild rhonchi on left.. Negative: Stridor, Wheezes Cardiovascular: Positive: Normal, RRR Musculoskeletal: Positive: Normal, Strength/ROM Intact Neurological: Positive: Normal, CN Intact II-III Psychiatric: Positive: Affect/Mood Appropriate Diagnostics - Vital Signs Vital Signs Temp Pulse Resp BP Pulse Ox 08/30/18 06:24 97.3 F 95 16 124/76 97 - Laboratory Lab Statement: Any lab studies that have been ordered have been reviewed, and results considered in the medical decision making process. EENT Course/Dx - Course Course Of Treatment: Pt. presenting for worsening sinus pain/pressure x 12 days. Also notes worsening cough. Pt. afebrile and nontoxic. Pt. tearful on exam secondary to pain. Pt. notes she feels dehydrated due to poor PO intake and requests IV fluids. Pt. given IV fluids, toradol and decadron. CXR negative for acute findings per radiology. On re-exam pt. resting more comfortably. Will treat with doxycycline and flonase for sinusitis. Motrin as directed. Close f.u with PCP and return to ER if sxs change or worsen. Pt. understands and agrees with plan. - Differential Diagnoses Differential Diagnoses: Influenza, Mastoiditis, Otitis Media, Sinusitis, URI/ Bronchitis - Diagnoses Provider Diagnoses: Sinusitis Discharge - Sign-Out/Discharge Documenting (check all that apply): Patient Departure Patient Received Moderate/Deep Sedation with Procedure: No - Discharge Plan Condition: Improved Disposition: HOME Prescriptions: DOXYcycline CAP(*) [DOXYcycline 100MG CAP(*)] 100 mg PO BID #20 cap Fluticasone NASAL SPRAY 50MCG* [Flonase NASAL SPRAY 50MCG*] 2 spray BOTH NARES DAILY #1 btl Patient Education Materials: Sinusitis (ED) Referrals: Vero Patterson MD [Primary Care Provider] - Additional Instructions: Follow up with PCP Take doxycycline and discontinue amoxicillin Ibuprofen as directed for pain Flonase as directed Increase rest and fluids Return to ER if symptoms change or worsen - Billing Disposition and Condition Condition: IMPROVED Disposition: Home
[2018-08-30 08:13] VITALS: BP 104/73
== END 2018-08-30 08:12 | disposition home or self-care (01) ==
LOC: ED 06:22
DX: J32.9 Chronic sinusitis, unspecified (principal); Z91.030 Bee allergy status; F17.210 Nicotine dependence, cigarettes, uncomplicated
CPT/HCPCS: 71046; 96361; 96374; 96375; 99283; J1100; J1885

== ENCOUNTER 2019-02-09 08:46 | Emergency (ER) | payer BC ==
[2019-02-09 09:21] LABS: Rapid Strep Molecular Negative (Negative)
[2019-02-09] MEDS ORDERED: Benzonatate CAP* 100 MG PO ONE (09:27)
[2019-02-09] MEDS ORDERED: GuaiFENesin DM sugar free 100mg/10mg 5 ML UDC PO ONE (09:27)
--- NOTE | 2019-02-09 09:30 | ED ---
Respiratory - HPI Summary HPI Summary: This patient is 48-year-old female presenting to the ED with cough and congestion as well as sore throat 5 days. She endorses a temperature at 101.2 at the highest at home. She has been taking Tylenol with some relief. She states despite the Tylenol, she continues to have a cough and congestion. She has been taking DayQuil and NyQuil as well as cough medication over-the- counter. She has not been taking cough drops. - History of Current Complaint Chief Complaint: EDThroatPain Stated Complaint: UPPER RESPIRATORY ISSUE PER PT Time Seen by Provider: 02/09/19 08:52 Hx Obtained From: Patient Onset/Duration: Sudden Onset Timing: Constant Initial Severity: Moderate Current Severity: Moderate Pain Intensity: 6 Character: Cough (Nonproductive) Sputum Amount: None Aggravating Factor(s): URI Alleviating Factor(s): Nothing Associated Signs and Symptoms: Fever - Risk Factors Status Asthmaticus Risk Factors: Negative Pulmonary Embolism Risk Factors: Negative Cardiac Risk Factors: Negative Tuberculosis Risk Factors: Negative - Allergy/Home Medications Allergies/Adverse Reactions: Allergies Allergy/AdvReac Type Severity Reaction Status Date / Time bee venom protein (honey bee) Allergy Swelling Verified 02/09/19 08:50 PMH/Surg Hx/FS Hx/Imm Hx Previously Healthy: Yes Endocrine/Hematology History: Reports: Hx Diabetes - REPORTS GESTATIONAL DIABETES-RESOLVED SINCE DELIVERY Cardiovascular History: Denies: Hx Congestive Heart Failure, Hx Hypertension, Hx Pacemaker/ICD Respiratory History: Denies: Hx Asthma, Hx Chronic Obstructive Pulmonary Disease (COPD) History: Denies: Hx Renal Disease Sensory History: Denies: Hx Contacts or Glasses, Hx Hearing Aid Opthamlomology History: Denies: Hx Contacts or Glasses Psychiatric History: Denies: Hx Panic Disorder - Cancer History Hx Chemotherapy: No Hx Radiation Therapy: No - Surgical History Surgery Procedure, Year, and Place: None - Immunization History Hx Pertussis Vaccination: No Immunizations Up to Date: Yes Infectious Disease History: No Infectious Disease History: Reports: Hx Hepatitis - HEP C EXPOSURE - CARRIES ANTIGEN Denies: Traveled Outside the [place] in Last 30 Days - Family History Known Family History: Positive: Other - Negative FMHx of breast cancer, Non- Contributory - Social History Occupation: Employed Full-time Lives: With Family Alcohol Use: Weekly Alcohol Amount: 2 GLASSES OF WINE PER WEEK Hx Substance Use: No Substance Use Type: Reports: None Hx Tobacco Use: Yes Smoking Status (MU): Light Every Day Tobacco Smoker Type: Cigarettes Amount Used/How Often: 7 CIGARETTES PER DAY FOR ABOUT 16 YEARS Length of Time of Smoking/Using Tobacco: 16 YEARS Have You Smoked in the Last Year: Yes Review of Systems Negative: Fever, Chills, Fatigue, Skin Diaphoresis Positive: Sore Throat Negative: Palpitations, Chest Pain Positive: Cough. Negative: Shortness Of Breath Genitourinary: Negative Positive: no symptoms reported, see HPI Negative: Arthralgia, Myalgia Psychological: Normal All Other Systems Reviewed And Are Negative: Yes Physical Exam Triage Information Reviewed: Yes Vital Signs On Initial Exam: Initial Vitals Temp Pulse Resp BP Pulse Ox 99.5 F 90 16 109/81 97 02/09/19 08:47 02/09/19 08:47 02/09/19 08:47 02/09/19 08:47 02/09/19 08:47 Vital Signs Reviewed: Yes Appearance: Positive: Well-Appearing, Well-Nourished Skin: Positive: Warm, Skin Color Reflects Adequate Perfusion Head/Face: Positive: Normal Head/Face Inspection Eyes: Positive: EOMI, GUS, Conjunctiva Clear Neck: Positive: Supple, No Lymphadenopathy Respiratory/Lung Sounds: Positive: Rhonchi - biltarally Cardiovascular: Positive: RRR, Pulses are Symmetrical in both Upper and Lower Extremities Musculoskeletal: Positive: Strength/ROM Intact Neurological: Positive: Speech Normal Psychiatric: Positive: Affect/Mood Appropriate AVPU Assessment: Alert Procedures - Sedation Patient Received Moderate/Deep Sedation with Procedure: No Diagnostics - Vital Signs Vital Signs Temp Pulse Resp BP Pulse Ox 02/09/19 08:47 99.5 F 90 16 109/81 97 - Laboratory Lab Results: Lab Results 02/09/19 Range/Units 08:59 Group A Strep Rapid Negative (Negative) Lab Statement: Any lab studies that have been ordered have been reviewed, and results considered in the medical decision making process. Disposition - Course Course Of Treatment: During his course of treatment, the patient is evaluated for cough and congestion as well as sore throat. She states she did have a fever of 101 yesterday, but denies this currently. She has been taking Tylenol and ibuprofen. She states she is most concerned over her cough and coughs to the point where she is unable to catch her breath. She denies any shortness of breath at baseline otherwise. Denies any history of asthma. She has been taking NyQuil and DayQuil [id number] without much relief. On physical examination, cough without production noted. Patient is afebrile, other vital signs are stable. No pharyngeal erythema or tonsillar exes bilaterally. No maxillary sinus tenderness. Patient is nondiaphoretic and nontoxic in appearing. X-ray obtained which shows a left lower lobe PNA. Strep swab obtained and is negative. Patient is given Robitussin as well as Tessalon in the ED with good relief. She was also given azithromycin 500 mg. She was sent home with a prescription of 250 mg tabs 4 days. She will also take Robitussin with codeine, this was prescribed to her. She is taken out of work for 4 days. Diagnosed with pneumonia. - Differential Dx - Cardiopulmonary Differential Diagnoses - Cardiopulmonary: Other - Pectoral pneumonia, viral pneumonia, upper respiratory infection, sore throat - Diagnoses Provider Diagnoses: Pneumonia Discharge ED - Sign-Out/Discharge Documenting (check all that apply): Patient Departure - Discharge Plan Condition: Stable Disposition: HOME Prescriptions: Azithromycin 250 mg PO DAILY #4 tablet guaiFENesin/CODIENE 100mg/10mg [Robitussin AC 100Mg-10Mg*] 10 ml PO SEE INSTRUCTIONS #[address] [facility] [place] Patient Education Materials: Pneumonia (ED) Forms: *Work Release Referrals: Vero Patterson MD [Primary Care Provider] - Additional Instructions: Azithromycin, take 1 tab daily 4 days, start this medication tomorrow Robitussin with codeine, 10 mg (2 tsp) 4 times daily as needed for cough Please use [id number] cough drops as well for relief Drink plenty of fluid Tylenol and ibuprofen intermittently for fevers and discomfort - Billing Disposition and Condition Condition: STABLE Disposition: Home - Attestation Statements Provider Attestation: I was available for consult. This patient was seen by the MARY. The patient was not presented to, seen by, or examined by me. Mateusz Monae MD
[2019-02-09] MEDS ORDERED: Azithromycin TAB* 250 MG PO ONE (11:28)
[2019-02-09 11:48] VITALS: BP 114/79
== END 2019-02-09 11:41 | disposition home or self-care (01) ==
LOC: ED 08:46
DX: J18.9 Pneumonia, unspecified organism (principal); F17.210 Nicotine dependence, cigarettes, uncomplicated
CPT/HCPCS: 71046; 87651; 99282; A9270-GY